=== PATIENT | male | born 1990 | race Two or more races ===

== ENCOUNTER 2020-09-14 12:04 | Emergency (ER) | payer BC ==
[~2020-09-14] VITALS: Ht 172.7 cm; Wt 124.7 kg
--- NOTE | 2020-09-14 12:30 | NUR ---
ED Nurse Note: pt presents to ED with R foot and ankle injury x2 days. pt states that he was running after his friend's dog, his foot got caught in a ditch in the ground and went into a dorsiflexion motion, he heard a pop and has pain and swelling since. pt cannot bear weight on the extremity, is using crutches to get around. skin over area is warm dry and intact with swelling and bruising noticed
--- NOTE | 2020-09-14 12:56 | NUR ---
ED Nurse Note: xray at pt bedside
--- NOTE | 2020-09-14 12:59 | Emergency Room Report ---
History of Present Illness General Chief Complaint: Lower Extremity Injury Source: Patient Present Illness HPI Disclaimer: Please note that this report is being documented using [employer] technology. This can lead to erroneous entry secondary to incorrect interpretation by the dictating instrument. HPI: 30-year-old male presents from home secondary to injury. He was walking yesterday stepped in a pothole and twisted his foot and ankle and has developed pain that is 8 out of 10 in the right foot worse with palpation and walking. He did come in using crutches. Patient is able to bear weight but with pain. Allergies: Coded Allergies: No Known Allergies (Unverified , 09/14/20) COVID-19 Screening Contact w/high risk pt: No Experienced COVID-19 symptoms?: No COVID-19 Testing performed [employer]: No Patient History Reviewed Nursing Documentation: PMH: Agreed; PSxH: Agreed Nursing Documentation-PMH Past Medical History: No Stated History Review of Systems All Other Systems: negative except mentioned in HPI Physical Exam Vital Signs Date Time Temp Pulse Resp B/P (MAP) Pulse Ox O2 Delivery O2 Flow Rate FiO2 09/14/20 12:21 98.2 78 19 127/80 (96) 98 Room Air Sp02 EP Interpretation: reviewed, normal General Appearance: well appearing, no apparent distress Head: normocephalic, atraumatic Eyes: bilateral eye PERRL, bilateral eye EOMI ENT: hearing grossly normal, moist mucus membranes Neck: full range of motion, supple Respiratory: lungs clear, normal breath sounds, no rhonchi, no respiratory distress, no retraction, no wheezing Cardiovascular #1: normal peripheral pulses, regular rate, rhythm, no murmur Gastrointestinal: non tender, soft, non-distended, no guarding Musculoskeletal: other - Right foot mildly tender to palpation along medial edge no obvious deformity 2+ pulses sensation intact Neurologic: alert, oriented x3, no focal defects Skin: normal color, warm/dry Medical Decision Making Diagnostic Impression: Primary Impression: Right foot sprain ER Course Patient presented with right foot pain. Differential included sprain versus fracture versus dislocation. Exam demonstrated mild tenderness without obvious deformity. X-rays completed and reviewed by me and I did not demonstrate any acute fracture or dislocation. Patient was neurovascularly intact on exam. He already was using crutches on arrival. Will discharge with anti-inflammatories, rest ice and elevation of the, extremity, follow-up with PMD. Patient expressed understanding the plan Other X-Ray Diagnostic Results Other X-Ray Diagnostic Results #1: X-Ray ordered: Right foot # of Views/Limited Vs Complete: 3 View Indication: Pain Interpretation: no dislocation, no fractures Impression: No acute disease Electronically Signed by: Luis Crane MD Other X-Ray Diagnostic Results #2: X-Ray ordered: Right ankle # of Views/Limited Vs Complete: 3 View Indication: Pain Interpretation: no dislocation, no fractures Impression: No acute disease Electronically Signed by: Luis Crane MD Last Vital Signs Date Time Temp Pulse Resp B/P (MAP) Pulse Ox O2 Delivery O2 Flow Rate FiO2 09/14/20 12:21 98.2 78 19 127/80 (96) 98 Room Air Status: improved Disposition: HOME, SELF-CARE Condition: Stable Scripts Ibuprofen* (MOTRIN*) 600 Mg Tablet 600 MG ORAL Q6H PRN for FOR PAIN, #20 TAB 0 Refills Prov: Luis Crane M.D. 09/14/20 Referrals: NOT CHOSEN FIONA/,REFERRING (PCP) Luis Crane M.D. Sep 14, 2020 12:59
--- NOTE | 2020-09-14 14:06 | Diagnostic Imaging Report ---
EXAM: XR Right Ankle, 3 Views CLINICAL HISTORY: PAIN TECHNIQUE: Frontal, lateral and oblique views of the right ankle. COMPARISON: Right foot x-rays obtained same date. FINDINGS: Bones/joints: Unremarkable. No visible displaced ankle fracture or dislocation. Ankle mortise and talar dome appear unremarkable. Visualized joint spaces appear unremarkable. Soft tissues: Mild bimalleolar soft tissue swelling. No radiodense foreign bodies. No soft tissue gas lucencies. IMPRESSION: Mild bimalleolar soft tissue swelling.
--- NOTE | 2020-09-14 14:08 | Diagnostic Imaging Report ---
EXAM: XR Right Foot, 3 Views CLINICAL HISTORY: PAIN TECHNIQUE: Frontal, lateral, and oblique views of the right foot. COMPARISON: Right ankle x-rays obtained the same date FINDINGS: Bones/joints: Unremarkable. No visible displaced fracture. No dislocation. No osseous erosions. Visualized joint spaces appear unremarkable. Soft tissues: Unremarkable. No radiopaque foreign body. IMPRESSION: Unremarkable right foot x-rays.
[2020-09-14] MEDS ORDERED: IBUPROFEN600 M1 ORAL (14:15)
[2020-09-14 14:20] VITALS: BP 127/80
--- NOTE | 2020-09-14 14:20 | NUR ---
ER DISCHARGE NOTE: Patient is cleared to be discharged per ERMD, pt is aox4, on room air, with stable vital signs. pt was given dc and prescription instructions, pt was able to verbalize understanding, pt id band removed without complications. pt is able to ambulate with steady gait. pt took all belongings.
== END 2020-09-14 14:20 | disposition home or self-care (01) ==
LOC: EMR 12:25
DX: S93.601A Unspecified sprain of right foot, initial encounter (principal); X50.1XXA Overexertion from prolonged static or awkward postures, initial encounter; Y93.01 Activity, walking, marching and hiking; Y92.9 Unspecified place or not applicable
CPT/HCPCS: 99284